=== PATIENT | female | born 1985 | race African-American/Black ===

== ENCOUNTER 2019-08-08 13:48 | Emergency (ER) | payer SELFPAY ==
[~2019-08-08] VITALS: Ht 165.1 cm; Wt 74.8 kg
[2019-08-08 15:15] VITALS: BP 141/81
[2019-08-08] MEDS ORDERED: ACET-704 PO (15:41)
[2019-08-08] MEDS ORDERED: NAPR500T8 PO (15:41)
[2019-08-08] MEDS ORDERED: PENI500T PO (15:41)
--- NOTE | 2019-08-08 15:42 | PHYS DOC ---
Past Medical History Past Medical History: No Pertinent History Past Surgical History: No Surgical History Alcohol Use: None Drug Use: None Adult General Chief Complaint Chief Complaint: DENTAL PROBLEM HPI HPI Patient is a 33 year old female who presents with 10 out of 10 left upper gum dental pain that began 2 days ago. Denies any fever or trismus. Review of Systems Review of Systems Constitutional: Denies fever or chills [] HENT: Reports left upper gum dental pain. Denies nasal congestion or sore throat [] Musculoskeletal: Denies back pain or joint pain [] Integument: Denies rash or skin lesions [] Neurologic: Denies headache, focal weakness or sensory changes [] All other systems were reviewed and found to be within normal limits, except as documented in this note. Physical Exam Physical Exam Constitutional: Well developed, well nourished, no acute distress, non-toxic appearance. [] HENT: Normocephalic, atraumatic, bilateral external ears normal, oropharynx moist, no oral exudates, nose normal. [] Tooth #16 appears decayed. Dental caries noted. Swelling noted on the left cheek. Skin: Warm, dry, no erythema, no rash. [] Back: No tenderness, no CVA tenderness. [] Extremities: No tenderness, no cyanosis, no clubbing, ROM intact, no edema. [] Neurologic: Alert and oriented X 3, normal motor function, normal sensory function, no focal deficits noted. [] Psychologic: Affect normal, judgement normal, mood normal. [] Current Patient Data Vital Signs Vital Signs Date Time Temp Pulse Resp B/P (MAP) Pulse Ox O2 Delivery O2 Flow Rate FiO2 08/08/19 15:15 98.3 66 16 141/81 (101) 97 Room Air 98.3 EKG EKG [] Radiology/Procedures Radiology/Procedures [] Course & Med Decision Making Course & Med Decision Making Pertinent Labs and Imaging studies reviewed. (See chart for details) This is a 33-year-old female patient with a dental abscess. Discharged with amoxicillin. Follow-up with her dentist in 1-2 weeks. Dragon Disclaimer Dragon Disclaimer This electronic medical record was generated, in whole or in part, using a voice recognition dictation system. Departure Departure Impression: Primary Impression: Dentalgia Additional Impression: Abscess, dental Disposition: HOME, SELF-CARE Condition: STABLE Referrals: NO PCP (PCP) Follow-up with the dentist in 1-2 weeks Patient Instructions: Dental Abscess Additional Instructions: You have a dental abscess. Take the prescribed antibiotic medications as ordered until completed. Follow-up with her dentist as soon as you can Scripts Naproxen (NAPROXEN) 500 Mg Tablet. 1 TAB PO BID, #20 TAB 0 Refills Prov: ROLANDO GRANT APRN 08/08/19 Acetaminophen With Codeine (TYLENOL WITH CODEINE #3 TABLET) 1 Each Tablet 1 TAB PO PRN Q6HRS PRN for PAIN, #20 TAB Prov: ROLANDO GRANT APRN 08/08/19 Penicillin V Potassium (PENICILLIN V POTASSIUM) 500 Mg Tablet 1 TAB PO BID, #14 TAB Prov: ROLANDO GRANT APRN 08/08/19 Problem Qualifiers ROLANDO GRANT APRN Aug 08, 2019 15:42
== END 2019-08-08 15:53 | disposition home or self-care (01) ==
LOC: ER 13:48
DX: K04.7 Periapical abscess without sinus (principal)
CPT/HCPCS: 99283